=== PATIENT | male | born 1995 | race Caucasian/White ===

== ENCOUNTER 2017-11-08 08:35 | Outpatient (CLI) | payer OTHER ==
--- NOTE | 2017-11-08 11:07 | ULT ---
RENAL SONOGRAM: HISTORY: Urinary tract infection. FINDINGS: The right kidney is 10.3 cm, the left is 11.4 cm. Each has a normal sonographic appearance without e vidence of mass, stone, or hydronephrosis. The urinary bladder is incompletely distended. IMPRESSION: No evidence of urinary tract obstruction. No significant abnormalities are demonstrated. POS: DARRYN
== END 2017-11-08 08:36 | disposition home or self-care (01) ==
LOC: ULT 08:35
PROVIDERS: ATTEND Urology
DX: N30.00 Acute cystitis without hematuria (principal)
CPT/HCPCS: 76770